=== PATIENT | female | born 1955 | race Caucasian/White ===

== ENCOUNTER 2016-11-05 16:20 | Inpatient (IN) | payer MEDICAID ==
[~2016-11-05] VITALS: Ht 162.6 cm; Wt 80.7 kg
[2016-11-05 18:35] LABS: UA SPECIFIC GRAVITY >=1.030 (1.005-1.035); microscopic required? YES; urine erythrocyte NEGATIVE (NEGATIVE)
[2016-11-05 18:50] LABS: BASOPHIL % 0.3 % (0-2); RED CELL DISTRIBUTION WIDTH 12.4 % (11.5-14.5)
[2016-11-05 18:52] LABS: PLATELET COUNT 126 x10^3mcL (130-400)
[2016-11-05 19:58] LABS: CALCIUM 8.1 mg/dL (8.5-10.1); CARBON DIOXIDE 26.2 mmol/L (21-32); CHLORIDE SERUM 97 mmol/L (98-107); CREATININE SERUM 0.9 mg/dL (0.6-1.0); GFR1 > 60 mL/min; GLUCOSE SERUM 286 mg/dL (74-106); POTASSIUM SERUM 3.3 mmol/L (3.5-5.1); SODIUM SERUM 130 mmol/L (136-145)
[2016-11-05 20:11] LABS: ALKALINE PHOSPHATASE 117 U/L (46-116); ALT/SGPT 39 U/L (14-59); AMYLASE 59 U/L (25-115); AST/SGOT 34 U/L (15-37); BILIRUBIN TOTAL 0.44 mg/dL (0.20-1.00); CHOLESTEROL 144 mg/dL (<200); HDL CHOLESTEROL 59 mg/dL (40-60); LIPASE 100 IU/L (73-393); T4(THYROXINE) 7.5 ug/dL (4.7-13.3); TOTAL PROTEIN, SERUM 7.2 g/dL (6.4-8.2)
[2016-11-05 20:13] LABS: ALBUMIN 3.1 g/dL (3.4-5.0)
[2016-11-05] MEDS ORDERED: NEU300 PO (20:38)
[2016-11-05] MEDS ORDERED: ZOCOR10 MG PO (20:38)
[2016-11-05] MEDS ORDERED: HUMULIN 70/303 ML SC (20:39)
[2016-11-05] MEDS ORDERED: HYDROXYZINE HYD25 MG PO (20:39)
[2016-11-05 21:54] VITALS: BP 108/60
[2016-11-06 03:14] VITALS: BP 108/60
[2016-11-06 06:05] VITALS: BP 113/63
[2016-11-06 06:06] LABS: RED CELL DISTRIBUTION WIDTH 12.6 % (11.5-14.5)
[2016-11-06 06:24] LABS: CALCIUM 7.5 mg/dL (8.5-10.1); CARBON DIOXIDE 22.8 mmol/L (21-32); CHLORIDE SERUM 109 mmol/L (98-107); CREATININE SERUM 0.7 mg/dL (0.6-1.0); GFR1 > 60 mL/min; GLUCOSE SERUM 356 mg/dL (74-106); PHOSPHOROUS 3.1 mg/dL (2.5-4.9); POTASSIUM SERUM 3.9 mmol/L (3.5-5.1); SODIUM SERUM 143 mmol/L (136-145)
[2016-11-06 06:29] LABS: PLATELET COUNT 104 x10^3mcL (130-400)
[2016-11-06 07:13] LABS: CHOLESTEROL/HDL RATIO 2.7
[2016-11-06 10:18] VITALS: BP 105/54
[2016-11-06 11:49] LABS: MONOCYTE 6 % (0-7); PLATELET MORPHOLOGY D; SEGMENTED NEUTROPHILS 62 % (37-75); rbc morphology (normal/abnorm) ABNORMAL (NORMAL)
[2016-11-06 18:34] VITALS: BP 123/64
[2016-11-06 21:50] VITALS: BP 120/69
[2016-11-07 05:28] VITALS: BP 127/70
[2016-11-07 07:14] LABS: BASOPHIL % 0.2 % (0-2); RED CELL DISTRIBUTION WIDTH 12.6 % (11.5-14.5)
[2016-11-07 07:20] LABS: PLATELET COUNT 115 x10^3mcL (130-400)
[2016-11-07 07:34] LABS: CALCIUM 7.5 mg/dL (8.5-10.1); CARBON DIOXIDE 25.5 mmol/L (21-32); CHLORIDE SERUM 108 mmol/L (98-107); CREATININE SERUM 0.7 mg/dL (0.6-1.0); GFR1 > 60 mL/min; GLUCOSE SERUM 122 mg/dL (74-106); MAGNESIUM 1.6 mg/dL (1.8-2.4); PHOSPHOROUS 2.4 mg/dL (2.5-4.9); POTASSIUM SERUM 3.6 mmol/L (3.5-5.1); SODIUM SERUM 143 mmol/L (136-145)
[2016-11-07 10:22] VITALS: BP 102/50
[2016-11-07 14:27] VITALS: BP 110/50
[2016-11-07 17:49] VITALS: BP 111/60
[2016-11-07 21:00] VITALS: BP 104/54
[2016-11-08 06:33] VITALS: BP 96/46
[2016-11-08 06:52] LABS: CALCIUM 7.8 mg/dL (8.5-10.1); CARBON DIOXIDE 29.8 mmol/L (21-32); CHLORIDE SERUM 108 mmol/L (98-107); CREATININE SERUM 0.6 mg/dL (0.6-1.0); GFR1 > 60 mL/min; GLUCOSE SERUM 93 mg/dL (74-106); MAGNESIUM 1.8 mg/dL (1.8-2.4); PHOSPHOROUS 3.9 mg/dL (2.5-4.9); POTASSIUM SERUM 3.2 mmol/L (3.5-5.1); SODIUM SERUM 144 mmol/L (136-145)
[2016-11-08 07:17] LABS: RED CELL DISTRIBUTION WIDTH 11.9 % (11.5-14.5)
[2016-11-08 07:19] LABS: BASOPHIL % 2.3 % (0-2); PLATELET COUNT 128 x10^3mcL (130-400)
[2016-11-08 09:43] VITALS: BP 94/52
[2016-11-08 17:14] VITALS: BP 102/55
[2016-11-08 21:58] VITALS: BP 116/59
[2016-11-09] VITALS (7 sets, daily range): BP systolic 97–106; BP diastolic 53–57
[2016-11-09 06:28] LABS: CALCIUM 7.8 mg/dL (8.5-10.1); CARBON DIOXIDE 29.5 mmol/L (21-32); CHLORIDE SERUM 108 mmol/L (98-107); CREATININE SERUM 0.6 mg/dL (0.6-1.0); GFR1 > 60 mL/min; GLUCOSE SERUM 93 mg/dL (74-106); MAGNESIUM 1.8 mg/dL (1.8-2.4); PHOSPHOROUS 4.8 mg/dL (2.5-4.9); POTASSIUM SERUM 3.4 mmol/L (3.5-5.1); SODIUM SERUM 147 mmol/L (136-145)
[2016-11-09 07:26] LABS: BASOPHIL % 0.3 % (0-2)
[2016-11-09 11:05] LABS: PLATELET COUNT 140 x10^3mcL (130-400)
[2016-11-09] MEDS ORDERED: LEVAQUIN750 MG PO ×2 (14:57→15:07)
[2016-11-09] MEDS ORDERED: PROAIR RES117 MCG/Ac IH ×2 (14:57→15:12)
[2016-11-09] MEDS ORDERED: CLEOCIN HCL300 MG PO ×2 (14:58→15:08)
[2016-11-09] MEDS ORDERED: LAC PO (14:59)
[2016-11-09] MEDS ORDERED: PULMICORT180 MCG/Ac INH (15:00)
[2016-11-09] MEDS ORDERED: MEDROL DOSEPAK4 MG PO (15:00)
[2016-11-09] MEDS ORDERED: GUAIFENESIN AN118 ML PO (15:01)
[2016-11-09] MEDS ORDERED: METFORMIN HCL500 MG PO (15:02)
[2016-11-09] MEDS ORDERED: ZOF4 PO (15:03)
== END 2016-11-09 23:33 | disposition home or self-care (01) | DRG 137 ==
LOC: ED 16:20 → DU 19:51 → MU 11-07 15:07
PROVIDERS: Emergency Medicine; ADMIT Family Medicine
DX: J69.0 Pneumonitis due to inhalation of food and vomit (principal); N17.0 Acute kidney failure with tubular necrosis; J96.01 Acute respiratory failure with hypoxia; E44.0 Moderate protein-calorie malnutrition; E11.65 Type 2 diabetes mellitus with hyperglycemia; D68.69 Other thrombophilia; I42.9 Cardiomyopathy, unspecified; E87.1 Hypo-osmolality and hyponatremia; E87.6 Hypokalemia; E78.00 Pure hypercholesterolemia, unspecified; J44.1 Chronic obstructive pulmonary disease with (acute) exacerbation; I27.2 Other secondary pulmonary hypertension; E83.39 Other disorders of phosphorus metabolism; E83.42 Hypomagnesemia; Z79.4 Long term (current) use of insulin; Z68.30 Body mass index [BMI] 30.0-30.9, adult; Z85.3 Personal history of malignant neoplasm of breast
CPT/HCPCS: 36600; 82962; 83880; 84439; 87804; J1815; J1940; J1956; J2405; J2550; J2930; J3490; J7030; J7050; J7613; J7620; J7633; J7644; Q0092